=== PATIENT | male | born 1940 | race Caucasian/White ===

== ENCOUNTER → 2016-08-13 | Outpatient (CLI) | payer MEDICARE, BC | END | disposition home or self-care (01) | LOC: GMAB 10:43 | PROVIDERS: ATTEND Family Medicine | DX: E03.9 Hypothyroidism, unspecified (principal); Z12.5 Encounter for screening for malignant neoplasm of prostate | CPT/HCPCS: 84439; 84443; 84481; G0103 ==

== ENCOUNTER → 2017-09-15 | Outpatient (CLI) | payer MEDICARE, BC | LOC: GMAB 10:38 | PROVIDERS: ATTEND Family Medicine | DX: E03.9 Hypothyroidism, unspecified (principal); I10 Essential (primary) hypertension; Z12.5 Encounter for screening for malignant neoplasm of prostate | CPT/HCPCS: 84439; 84443; 84481; G0103 ==

== ENCOUNTER → 2018-09-21 | Outpatient (CLI) | payer MEDICARE, BC | LOC: GMAE 10:36 | PROVIDERS: ATTEND Family Medicine | DX: E03.9 Hypothyroidism, unspecified (principal) ==

== ENCOUNTER → 2019-09-27 | Outpatient (CLI) | payer MEDICARE | LOC: GMAE 11:10 | PROVIDERS: ATTEND Family Medicine | DX: E03.9 Hypothyroidism, unspecified (principal); I10 Essential (primary) hypertension; I08.0 Rheumatic disorders of both mitral and aortic valves; E78.2 Mixed hyperlipidemia ==

== ENCOUNTER → 2020-05-30 | Outpatient (CLI) | payer MEDICARE | LOC: GMAE 16:56 | PROVIDERS: ATTEND Family Medicine | DX: N39.0 Urinary tract infection, site not specified (principal); Z79.01 Long term (current) use of anticoagulants; J06.9 Acute upper respiratory infection, unspecified ==